=== PATIENT | female | born 1985 | race African-American/Black ===

== ENCOUNTER 2018-12-12 07:46 | Day surgery (SDC) | payer SELFPAY ==
[2018-12-12 08:33] LABS: Bilirubin Negative (Negative); Blood, Urine Negative (Negative); Clarity Turbid (Clear); Glucose, Urine (Dipstick) Normal (Negative); Leukocyte 75 Leu/uL (Negative); Nitrite Negative (Negative); Protein, Urine (Dipstick) Negative (Neg-Trace); RBC/HPF 0-3 HPF (0-3); Urobilinogen Normal mg/dL (Less than 2); WBC/HPF 0-3 HPF (0-3)
[2018-12-12 08:34] LABS: Bacteria/HPF 1+ HPF (None Seen)
[2018-12-12 08:35] LABS: Pregnancy Test - Urine (BHCG) POSITIVE (Negative); Pregu Control Background? CLEAR/WHITE (CLR/WHITE); Pregu Control Bar Appear? YES (CONTROL BAR); Specific Gravity 1.015 (1.002-1.036)
[2018-12-12 08:37] LABS: #Basophils 0.1 thou/uL (0.0-0.2); #Eosinphils 0.2 thou/uL (0.0-0.7); #Lymphocytes 2.9 thou/uL (1.20-3.40); #Monocytes 0.8 thou/uL (0.11-0.59); #Neutrophils 5.4 thou/uL (1.40-6.50); %Basophils 0.5 % (0.0-1.0); %Eosinophils 1.9 % (0.0-10.0); %Lymphocytes 31.1 % (21.0-51.0); %Monocytes 8.8 % (0.0-10.0); %Neutrophils 57.7 % (42.0-75.0); Hemoglobin 9.2 g/dL (12.0-16.0); Mean Corpuscular HGB CONC 33.3 g/dL (32.0-36.0); Mean Corpuscular Hemoglobin 29.1 pg (27.0-31.0); Mean Corpuscular Volume 87.5 fL (78.0-98.0); Mean Platelet Volume 6.9 fL (7.4-10.4); Platelet Count 259 thou/uL (130-400); RBC Distribution Width 14.8 % (11.5-14.5); Red Blood Cell (RBC) Count 3.17 mill/uL (4.20-5.40); White Blood Cell (WBC) Count 9.4 thou/uL (4.8-10.8)
[2018-12-12 08:48] LABS: Yeast-Budding None Seen HPF (None Seen)
--- NOTE | 2018-12-12 09:48 | ULT ---
LIMITED OB ULTRASOUND: Date: 12/12/18 HISTORY: Abdominal pain. Patient did not know she was until she came to the ER. History of irregular periods. Unknown last menstrual period. FINDINGS: A single live intrauterine gestation is seen with measurements corresponding to an estimated gestatio nal age of 26 weeks/5 days and ALON at 03/15/19. The estimated weight measures 963 gm, or 2 lbs 2 oz. measurements are as follows: BPD: 6.56 cm, 26 weeks/3 days HC: 24.90 cm, 27 weeks/0 days AC: 22.17 cm, 26 weeks/4 days FL: 4.93 cm, 26 weeks/4 heart rate measures 139 beats/minute. TYRELL measures 10.5 cm. Placenta is posteriorly located wit hout evidence of placenta previa. IMPRESSION: Single live intrauterine gestation of 26 weeks/5 days estimated gestational age and ALON at 03/15/19. POS: [facility]
--- NOTE | 2018-12-12 11:23 | ULT ---
EXAM: RIGHT LOWER EXTREMITY DOPPLER VENOUS ULTRASOUND PROVIDED CLINICAL HISTORY: Right lower extremity pain TECHNIQUE: Grayscale and color Doppler sonography with spectral analysis was performed of the right common femor al, femoral, popliteal, posterior tibial, greater saphenous and profunda femoral veins. FINDINGS: There is normal compression, flow and augmentation seen within the deep venous structures o f the right lower extremity. IMPRESSION: No sonographic evidence for right lower extremity deep venous thrombosis.
--- NOTE | 2018-12-12 12:13 | PRG ---
DATE OF SERVICE: HISTORY OF PRESENT ILLNESS: Ms. Marylou Fink is a 33-year-old, G5, P4, who at 26 weeks and 5 days by an ultrasound done today with an ALON of 03/15/2019, who presented to the emergency department with right lower extremity discomfort. The patient reports that she noticed the discomfort yesterday. She denies any generalized swelling, redness or trauma to the area. Only reports some mild pain directly behind on the posterior aspect of her right knee. The patient denies any complaints. Reports good movement. Denies any vaginal bleeding , discharge, or contractions. She had some mild discomfort with urination. Otherwise, denies any other gynecology complaints. She has not established care at this time and is in the process of obtaining her Medicaid for insurance. PAST MEDICAL HISTORY: Reports a questionable history of hypertension with her previous pregnancies. Otherwise, denies any past medical history. OB HISTORY: G5, P4 with 4 living children. She did have vaginal delivery of twins, however, one of the babies has passed. All of her deliveries have been vaginal. GYNECOLOGY: Denies history of STDs. SOCIAL HISTORY: Reports rare tobacco use. Otherwise denies alcohol or drug use. PAST SURGICAL HISTORY: Denies. OBJECTIVE: VITAL SIGNS: Stable. GENERAL: No acute distress. RESPIRATORY: Unlabored breathing. CARDIOVASCULAR: Regular rate. ABDOMEN: Soft, gravid, nontender. EXTREMITIES: No edema or erythema noted in either extremity. Very minimal tenderness to palpation along the posterior aspect of the right calf. Negative Homans. Negative cords. LABORATORY DATA: Hemoglobin is 9.2, hematocrit is 27.7. Urinalysis shows some leukocyte esterase, but negative nitrites. The right lower extremity Doppler demonstrated no evidence for right lower extremity DVT. ASSESSMENT: 1. A 26 weeks and 5 days intrauterine . 2. Insufficient care. 3. Mild anemia. 4. Right lower extremity pain. PLAN: The patient can be discharged home. Her right lower extremity ultrasound was negative. Encouraged to start iron and establish care. Urine culture was also sent. Job ID: [id number] [facility]
== END 2018-12-12 11:44 | disposition home health service (06) ==
LOC: ERS 07:46 → L&D/OP 07:46 → ERS 09:41 → EDSTATUS 09:46
PROVIDERS: ATTEND Obstetrics & Gynecology
DX: O99.89 Other specified diseases and conditions complicating pregnancy, childbirth and the puerperium (principal); M79.604 Pain in right leg; O99.012 Anemia complicating pregnancy, second trimester; D64.9 Anemia, unspecified; O09.32 Supervision of pregnancy with insufficient antenatal care, second trimester; O99.332 Smoking (tobacco) complicating pregnancy, second trimester; F17.200 Nicotine dependence, unspecified, uncomplicated; Z3A.26 26 weeks gestation of pregnancy
CPT/HCPCS: 36415; 76815; 81003; 81015; 81025; 84702; 85025; 87086; 99282

== ENCOUNTER 2019-02-16 10:46 | Outpatient (CLI) | payer OTHER ==
--- NOTE | 2019-02-16 11:50 | ULT ---
EXAM: US OB Complete STANDARD PROVIDED CLINICAL HISTORY: anatomy COMPARISON: 12/12/2018 FINDINGS: A single live intrauterine gestation is documented in cephalic presentation with heart rate of 136 bp m documented. The placenta is posteriorly/fundally located without evidence for previa. The cervix is not well visualized. The visualized portions of the head appear normal, with nonvisualizatio n of the cerebellum, cisterna magna or lateral ventricular system. The upper extremities are also not visualized. The four-chamber heart, stomach, kidneys, umbilical cord and cord insertion, bladder, lower extremities and spine appear normal. biometry: BPD: 8.92 cm 36 weeks 1 day Head circumference: 31.9 cm 36 weeks 0 days Abdominal circumference: 32.2 cm 36 weeks 1 day Femur length: 7.1 cm 36 weeks 2 days Estimated gestational age based on today's examination is 36 weeks 1 day, correlating well with the p rior study. Estimated weight is 2849 +/- 416 g. Amniotic fluid index is 12.5. IMPRESSION: Single live intrauterine gestation as described.
== END 2019-02-16 10:47 | disposition home or self-care (01) ==
LOC: BICULT 10:46
PROVIDERS: ATTEND Obstetrics & Gynecology
DX: Z36.0 Encounter for antenatal screening for chromosomal anomalies (principal); Z3A.36 36 weeks gestation of pregnancy
CPT/HCPCS: 76805

== ENCOUNTER 2019-03-06 10:58 | Inpatient (IN) | payer OTHER ==
[2019-03-06 11:34] VITALS: BMI 29.4
[2019-03-06] MEDS ORDERED: Butorphanol Tartrate 1 MG/ML VIAL SLOW IVP PRN (12:25)
[2019-03-06] MEDS ORDERED: Promethazine HCl 25 MG/ML VIAL IM PRN ×3 (12:25→19:42)
[2019-03-06] MEDS ORDERED: hydrALAZINE 20 MG/ML VIAL SLOW IVP PRN ×2 (12:25→19:42)
[2019-03-06] MEDS ORDERED: Ondansetron PF 4 MG/2 ML Vial IVP PRN ×3 (12:25→19:42)
[2019-03-06] MEDS ORDERED: Lidocaine 1% (PF) 30 ML VIAL SC PRN (12:25)
[2019-03-06] MEDS ORDERED: Acetaminophen 500 MG TAB PO PRN (12:25)
[2019-03-06] MEDS ORDERED: NS / Oxytocin 40 units/1000ml 1,000 ML IV PRN (12:25)
[2019-03-06] MEDS ORDERED: Ibuprofen 800 MG TAB PO PRN (12:25)
[2019-03-06] MEDS ORDERED: Lactated Ringer's 1,000 ML IV SCH (12:30)
[2019-03-06 12:45] LABS: Mean Corpuscular HGB CONC 32.8 g/dL (32.0-36.0); Mean Corpuscular Hemoglobin 27.9 pg (27.0-31.0); Mean Corpuscular Volume 85.3 fL (78.0-98.0); Mean Platelet Volume 7.7 fL (7.4-10.4); Platelet Count 329 thou/uL (130-400); RBC Distribution Width 14.6 % (11.5-14.5); Red Blood Cell (RBC) Count 3.58 mill/uL (4.20-5.40); White Blood Cell (WBC) Count 9.6 thou/uL (4.8-10.8)
[2019-03-06] MEDS ORDERED: Fentanyl 4 mcg/Bup 0.1% Cadd 100 ML ONE (12:56)
[2019-03-06 13:23] LABS: HBSAg Index 0.11 S/CO (0-0.99); Hep B Surf Ag Non-Reactive S/CO (NonReactive); Syphilis Antibody Nonreactive (Nonreactive); Syphilis Antibody Index 0.03 S/CO (<1.00 Non-Reactive)
[2019-03-06] MEDS ORDERED: Oxytocin 10 UNITS/ML VIAL ONE (13:46)
[2019-03-06] MEDS ORDERED: NS w/ Oxytocin 10 units 500 ML ONE (13:46)
[2019-03-06] MEDS ORDERED: Lidocaine 1.5%/Epinephrine 1:200,000 5 ML AMPUL IJ ONE (14:53)
[2019-03-06] MEDS ORDERED: Communication Order-Pharmacy FS SCH (15:15)
[2019-03-06] MEDS ORDERED: Lactated Ringer's 500 ML IV PRN (15:15)
[2019-03-06] MEDS ORDERED: Naloxone HCl 0.4 mg/ml Vial IVP PRN ×2 (15:15)
[2019-03-06] MEDS ORDERED: diphenhydrAMINE 50 MG/ML VIAL IVP PRN (15:15)
[2019-03-06] MEDS ORDERED: Acetaminophen 325 MG TAB PO PRN (15:15)
[2019-03-06] MEDS ORDERED: Fentanyl 4 mcg/Bupivacaine 0.1% Cassette 100 ML EPIDURAL SCH (15:15)
[2019-03-06] MEDS ORDERED: ePHEDrine/0.9% NaCl/PF SYRINGE 50 mg/10 ml SLOW IVP PRN (15:15)
--- NOTE | 2019-03-06 16:54 | PDOC.LDHP ---
Labor and Delivery H&P Chief complaint: contractions HPI: 34 y/o at 38 and 4/7 weeks presents in Labor. Current gestational age (weeks): 38 Due date: 03/16/19 Grav: 5 Para: 4 Current complications: none Abnormal US findings: No Current medications: pre-oliva vitamins Previous surgical history: none Allergies/Adverse Reactions: Allergies Allergy/AdvReac Type Severity Reaction Status Date / Time No Known Allergies Allergy Verified 12/12/18 10:26 Social history: none - Physical Exam Vital signs reviewed and normal: yes General: NAD, resting Heart: RRR Lungs: CTAB Abdomen: NTTP Extremeties: no edema FHT: category 1 - Vaginal Exam cm dilated: 5 - Assessment L&D Assessment: term patient in labor - Plan Plan: admit to L&D, labor augmentation if indicated
[2019-03-06] MEDS ORDERED: HYDROcodone/Acetaminophen 5/325 mg Tablet PO PRN ×2 (19:42)
[2019-03-06] MEDS ORDERED: Milk Of Magnesia 30 ML UDCUP PO PRN (19:42)
[2019-03-06] MEDS ORDERED: Bisacodyl 10 MG SUPP PR PRN (19:42)
[2019-03-06] MEDS ORDERED: diphenhydrAMINE 25 MG CAP PO PRN (19:42)
[2019-03-06] MEDS ORDERED: NS / Oxytocin 40 units/1000ml 1,000 ML IV SCH (19:42)
[2019-03-06] MEDS ORDERED: Preparation H Ointment 28 GM TUBE PR PRN (19:42)
[2019-03-06] MEDS ORDERED: Zolpidem Tartrate 5 MG TAB PO PRN (19:42)
[2019-03-06] MEDS ORDERED: Methylergonovine 0.2 MG/ML VIAL IM PRN (19:42)
[2019-03-06] MEDS ORDERED: Benzocaine-Menthol 82.5 ML CAN TOP PRN (19:42)
[2019-03-06] MEDS ORDERED: Misoprostol 200 MCG TAB VAG PRN (19:42)
[2019-03-06] MEDS ORDERED: Lanolin Ointment 7 GM TUBE TOP PRN (19:42)
[2019-03-06] MEDS: Ibuprofen 800 MG TAB PO SCH (21:41)
[2019-03-06] MEDS: Docusate Calcium (SURFAK) 240 MG CAP PO SCH (23:25)
[2019-03-07] MEDS ORDERED: Sodium Chloride 0.9% 10 ML ONE (04:21)
[2019-03-07] MEDS: Ibuprofen 800 MG TAB PO SCH ×2 (05:40→13:31)
[2019-03-07 06:54] LABS: Hemoglobin 7.7 g/dL (12.0-16.0); Mean Corpuscular HGB CONC 32.6 g/dL (32.0-36.0); Mean Corpuscular Hemoglobin 27.8 pg (27.0-31.0); Mean Corpuscular Volume 85.5 fL (78.0-98.0); Mean Platelet Volume 7.2 fL (7.4-10.4); Platelet Count 239 thou/uL (130-400); RBC Distribution Width 14.6 % (11.5-14.5); Red Blood Cell (RBC) Count 2.75 mill/uL (4.20-5.40); White Blood Cell (WBC) Count 16.6 thou/uL (4.8-10.8)
--- NOTE | 2019-03-07 07:57 | PDOC.PP ---
Post Progress Note Post Day #: 1 Subjective: Patient doing well. No significant overnight events. Tolerating PO. Ambulating. Patient with a few, quarter sized blood clots after delivery, but she has not had any in the last several hours. PO intake tolerated: yes Flatus: yes Ambulation: yes Vital Signs (12 hours) Temp Pulse Resp BP Pulse Ox 03/07/19 04:42 97.6 F 63 126/74 03/06/19 23:17 99 03/06/19 22:30 97.8 F 60 20 134/74 99 03/06/19 21:00 97.8 F 86 18 134/82 99 03/06/19 20:00 97.6 F 91 18 134/77 99 Weight Weight 80.286 kg - Physical Examination General: NAD Cardiovascular: RRR Respiratory: non-labored breathing Abdominal: + bowel sounds, lochia (few quarter sized clots initially PP which have since resolved, minimal bleeding currently) Fundus firm & at: at umbilicus Skin: no rash Neurological: no gross focal deficits Psychiatric: A&Ox3, normal affect Result Diagrams: 03/07/19 06:37 Additional Labs: Post Labs Blood Type B POSITIVE 03/06/19 12:37 Hep Bs Antigen Non-Reactive S/CO (NonReactive) 03/06/19 12:37 (1) Term delivered Code(s): O80 - ENCOUNTER FOR FULL-TERM UNCOMPLICATED DELIVERY Status: Acute (2) (spontaneous vaginal delivery) Code(s): O80 - ENCOUNTER FOR FULL-TERM UNCOMPLICATED DELIVERY Status: Acute - Assessment/Plan Routine PP care - Meeting all PP milestones - Lochia minimal currently - B+, neg - No complications Dispo: d/c home tonight pending bilirubin level around 4:00 PM.
[2019-03-07] MEDS: Docusate Calcium (SURFAK) 240 MG CAP PO SCH (08:57)
[2019-03-07] MEDS ORDERED: Adacel (T-DAP) 0.5 ML SYRINGE IM ONE (09:00)
[2019-03-07] MEDS ORDERED: Prenatal Vitamin 1 TAB PO SCH (09:00)
[2019-03-07] MEDS ORDERED: Varicella virus, LIVE 0.5 ML VIAL SC ONE (09:00)
[2019-03-07] MEDS ORDERED: FLU VACC QS2019-20(6MOS UP)/PF 60 MCG/0.5 ML SYRINGE IM ONE (09:00)
[2019-03-07] MEDS ORDERED: Measles/Mumps/Rubella 10 MCG/0.5 ML VIAL SC ONE (09:00)
[2019-03-07] MEDS: Ferrous Sulfate 325 MG TAB PO SCH ×2 (10:19→17:52)
[2019-03-07 13:16] VITALS: TEMP 98.4
[2019-03-07 15:57] VITALS: BP 121/77
--- NOTE | 2019-03-10 03:51 | PQF ---
TINO MICHEL DAVID MD [id number] CLINICAL DOCUMENTATION CLARIFICATION FORM: POST DISCHARGE Addendum to original discharge summary date: ____ Late entry note date: __ DATE: 03/10/19 ATTN: Graeme Callejas Please exercise your independent, professional judgment in responding to the clarification form. Clinical indicators are provided on the bottom of this form for your review Please check appropriate box(s): [ ] Acute blood loss anemia [ ] Post-op anemia related to acute blood loss [ ] Anemia NOS [ ] Other diagnosis [ ] Unable to determine In addition, please specify: Present on Admission (POA): [ ] Yes [ ] No [ ] Unable to determine For continuity of documentation, please document condition throughout progress notes and discharge summary. Thank You. CLINICAL INDICATORS - SIGNS / SYMPTOMS / LABS PN p1 03/07 Dr Spangler Patient with a few, quarter sized blood clots afte delivery PN p1 03/07 Dr Spangler few quarter sized clots initially PP which have since resolved, minimal bleeding currently Hematology 03/06 Hbg 10.0, Hct 30.5 Hematology 03/07 Hgb 7.7, Hct 23.5 RISK FACTORS PN p2 03/07 Term delivered PN p2 03/07 s/p TREATMENTS: JUL 26 Ferrous Sulfate 325mg if hemoglobin <10gms (This form is maintained as a part of the permanent medical record) 2014 [employer] All Rights Reserved [email or web address] [not provided] MTDD
== END 2019-03-07 18:42 | disposition home or self-care (01) | DRG 807 ==
LOC: L&D/OP 10:58 → L&D 13:08 → 3SW 19:52
PROVIDERS: ADMIT Obstetrics & Gynecology; ATTEND Obstetrics & Gynecology
PROC: 10E0XZZ Delivery of Products of Conception, External Approach (ICD-10-PCS; principal; 2019-03-06)
DX: O72.1 Other immediate postpartum hemorrhage (principal); Z37.0 Single live birth; Z3A.38 38 weeks gestation of pregnancy; Z28.21 Immunization not carried out because of patient refusal
CPT/HCPCS: 36415; 51702; 85027; 86780; 86850; 86900; 86901; 87340; 99285; J2590; J3490

== ENCOUNTER 2019-11-05 17:59 | Emergency (ER) | payer OTHER, SELFPAY | END 2019-11-05 18:28 | disposition home or self-care (01) | LOC: ERS 17:59 | DX: K03.81 Cracked tooth (principal); K02.9 Dental caries, unspecified; F17.210 Nicotine dependence, cigarettes, uncomplicated | CPT/HCPCS: 99282 ==

== ENCOUNTER 2020-03-03 13:07 | Emergency (ER) | payer SELFPAY, OTHER ==
[2020-03-04 12:10] LABS: SARS-CoV-2 MS2 Positive; SARS-CoV-2 N Gene Negative; SARS-CoV-2 S Gene Negative; SARS-CoV-2 by NAA Not Detected (NotDetected); SARS-CoV-2 orf1ab Negative
== END 2020-03-03 14:06 | disposition home or self-care (01) ==
LOC: ERS 13:07
DX: Z20.828 Contact with and (suspected) exposure to other viral communicable diseases (principal)
CPT/HCPCS: 87635; 99283; U0003

== ENCOUNTER 2024-06-16 12:17 | Emergency (ER) | payer SELFPAY ==
[~2024-06-16 12:17] MED LIST: Iopamidol 370 76% 100 ML VIAL ONE
[2024-06-16 13:29] LABS: #Basophils Less than 0.03 10x3/uL (0.0-0.2); #Eosinophils Less than 0.03 10x3/uL (0.0-0.7); %Basophils 0.1 % (0.0-1.0); %Lymphocytes 8.9 % (21.0-51.0); %Monocytes 1.5 % (0.0-10.0); %Neutrophils 89.2 % (42.0-75.0); Hematocrit 35.3 % (36.0-47.0); Hemoglobin 11.1 g/dL (12.0-16.0); Mean Corpuscular HGB CONC 31.4 g/dL (32.0-36.0); Mean Corpuscular Hemoglobin 27.7 pg (27.0-31.0); Mean Platelet Volume 9.6 fL (7.4-10.4); Platelet Count 344 10x3/uL (130-400); Red Blood Cell (RBC) Count 4.01 mill/uL (4.20-5.40)
[2024-06-16 13:42] LABS: BHCG - Serum Negative (NEGATIVE); Pregs Control Background? CLEAR/WHITE (CLR/WHITE); Pregs Control Bar Appear? YES (CONTROL BAR)
[2024-06-16 13:47] LABS: ALT (SGPT) 7 U/L (Less than 34); AST (SGOT) 17 U/L (11-34); Albumin 4.2 g/dL (3.1-4.5); Alkaline Phosphatase 69 U/L (40-110); Anion Gap 11 mmol/L (10-20); BUN (Urea Nitrogen) 7 mg/dL (7.0-18.7); Bilirubin, Total 0.2 mg/dL (0.3-1.2); Calc. Creatinine Clearance 0 mL/min (70-130); Calcium 9.5 mg/dL (7.8-10.44); Carbon Dioxide 29 mmol/L (22-29); Chloride 110 mmol/L (98-107); Estimated GFR 100; Globulin 4.1 g/dL (2.4-3.5); Glucose 101 mg/dL (70-105); Lipase 14 U/L (8-78); Potassium 3.6 mmol/L (3.5-5.1); Protein, Total 8.3 g/dL (6.0-8.3); Sodium 146 mmol/L (136-145)
[2024-06-16] MEDS ORDERED: Famotidine/PF 20 mg/2ml Vial ONE (14:27)
[2024-06-16 14:43] LABS: Bacteria/HPF None Seen HPF (None Seen); Bilirubin Negative (Negative); Blood, Urine Negative (Negative); CAUTI Indications for Culture Pelvic or flank pain; Clarity Clear (Clear); Glucose, Urine (Dipstick) Normal (Negative); Ketone, Urine 20 mg/dL (Negative); Leukocyte Negative Leu/uL (Negative); Nitrite Negative (Negative); Protein, Urine (Dipstick) 50 mg/dL (Neg-Trace); RBC/HPF 0-3 HPF (0-3); Specific Gravity, Urine 1.026 (1.002-1.036); Urobilinogen Normal mg/dL (Less than 2); WBC/HPF 0-3 HPF (0-3); pH, Urine 8.5 (5.0-9.0)
[2024-06-16 14:47] LABS: Urine Culture Reflex No No
== END 2024-06-16 15:31 | disposition home or self-care (01) ==
LOC: ERS 12:17
DX: K80.20 Calculus of gallbladder without cholecystitis without obstruction (principal); I10 Essential (primary) hypertension
CPT/HCPCS: 36415; 74177; 76705; 80053; 81001; 83690; 84703; 85025; 87428; 93005; J3490; Q9967